=== PATIENT | female | born 1980 | race Asian ===

== ENCOUNTER 2017-01-14 16:42 | Emergency (ER) | payer OTHER ==
[~2017-01-14] VITALS: Ht 160 cm; Wt 59.0 kg
[2017-01-14 17:09] VITALS: BP 132/92
[2017-01-14] MEDS ORDERED: predniSONE 20 MG TABLET PO ONE (17:15)
[2017-01-14] MEDS ORDERED: diphenhydrAMINE HCL 25 MG CAPSULE PO ONE ×2 (17:15→17:17)
[2017-01-14] MEDS ORDERED: predniSONE 20 MG TABLET ONE (17:17)
[2017-01-14] MEDS ORDERED: PRED20TA PO (17:31)
[2017-01-14] MEDS ORDERED: TRIA15OI TP (17:31)
--- NOTE | 2017-01-14 17:31 | PHYS DOC ---
Past Medical History Past Medical History: No Pertinent History Past Surgical History: No Surgical History Alcohol Use: None Drug Use: None Adult General Chief Complaint Chief Complaint: ITCHING HPI HPI Patient is a 36 year old female female presents to the emergency department with a family member who is interpreting for the patient since the patient does not speak Georgian. She provided information that the patient was outside working in her garden on Sunday. She states that yesterday she developed a rash on bilateral hands and forearms. She states that she has had bilateral eye swelling. Patient states through the steam meter reader that should been taking Benadryl with minimal to no relief. She denies any drainage or discharge coming from the sites. She states that she is having a little shortness of air. She does not appear to be in any distress at this time. Denies any nausea or vomiting. Review of Systems Review of Systems Constitutional: Denies fever or chills [] Eyes: Denies change in visual acuity, redness, or eye pain. Bilateral swelling of eyes with redness noted. HENT: Denies nasal congestion or sore throat [] Respiratory: Denies cough or shortness of breath [] Cardiovascular: No additional information not addressed in HPI [] GI: Denies abdominal pain, nausea, vomiting, bloody stools or diarrhea [] : Denies dysuria or hematuria [] Musculoskeletal: Denies back pain or joint pain [] Integument: Complain a rash on bilateral hands and lower legs. No skin lesions Neurologic: Denies headache, focal weakness or sensory changes [] Endocrine: Denies polyuria or polydipsia [] Current Medications Current Medications Current Medications Medications (Trade) Dose Ordered Sig/Cheko Start Time Stop Time Status Last Admin Dose Admin Diphenhydramine HCl (Benadryl) 25 mg STK-MED ONCE 01/14/17 17:17 01/14/17 17:18 DC Prednisone (Prednisone) 20 mg STK-MED ONCE 01/14/17 17:17 01/14/17 17:18 DC Allergies Allergies Allergies Coded Allergies Type Severity Reaction Last Updated Verified No Known Drug Allergies 01/14/17 No Physical Exam Physical Exam Constitutional: Well developed, well nourished, no acute distress, non-toxic appearance. [] HENT: Normocephalic, atraumatic, bilateral external ears normal, oropharynx moist, no oral exudates, nose normal. Eyes: PERRLA, EOMI, conjunctiva normal, no discharge. Patient was noted to have swelling of bilateral eyes with redness noted around the areas no rash noted around the eyes. No drainage or discharge noted. Neck: Normal range of motion, no tenderness, supple, no stridor. [] Cardiovascular:Heart rate regular rhythm, no murmur [] Lungs & Thorax: Bilateral breath sounds clear to auscultation [] Skin: Warm, dry, no erythema, red raised pustular type rash noted on the hands. No drainage or discharge noted. Back: No tenderness Extremities: No tenderness, no cyanosis, no clubbing, ROM intact, no edema. [] Neurologic: Alert and oriented X 3, normal motor function, normal sensory function, no focal deficits noted. [] Psychologic: Affect normal, judgement normal, mood normal. [] Current Patient Data Vital Signs Vital Signs Date Time Temp Pulse Resp B/P (MAP) Pulse Ox O2 Delivery O2 Flow Rate FiO2 01/14/17 17:09 98.3 84 18 98 Room Air 98.3 EKG EKG [] Radiology/Procedures Radiology/Procedures [] Course & Med Decision Making Course & Med Decision Making Pertinent Labs and Imaging studies reviewed. (See chart for details) Patient was provided with Benadryl here in the emergency department as well as prednisone. Recommended patient to use 25 mg of Benadryl every 6 hours at home. Patient was instructed through the steam meter reader that this medication will cause drowsiness do not take any be alert and oriented. Patient was provided with prednisone here in the emergency department which she'll be provided for another 7 days without home. Recommended keeping the areas clean dry and cool. Recommended following up with her primary care physician within the next week. Patient states that she does not have a primary care physician. She was provided with a doctor's list. Signs and symptoms to return back to emergency department as been provided. Patient agrees with discharge instructions treatment regimens and follow-up recommendations. All questions and concerns have been answered through the steam meter reader at the bedside. [] Dragon Disclaimer Dragon Disclaimer This electronic medical record was generated, in whole or in part, using a voice recognition dictation system. Departure Departure Impression: Primary Impression: Allergic reaction Disposition: HOME, SELF-CARE Condition: STABLE Patient Instructions: Allergies, Generic Additional Instructions: Activity as tolerated. Benadryl 25 mg every 6 hours. This medication will cause drowsiness do not take any be alert and oriented. Prednisone as prescribed. You may also take Pepcid [id number] as prescribed by grill cook. Follow-up with a primary care physician in the next week. Return back to emergency prior signs symptoms of become worse. Scripts Prednisone (PREDNISONE) 20 Mg Tablet 40 MG PO DAILY for 7 Days, #14 TAB Prov: LORENA VIVAS APRN 01/14/17 Triamcinolone Acetonide (TRIAMCINOLONE ACETONIDE 0.1% OINT) 15 Gm Oint...g. 1 KATHLEEN TP BID for WOUND CARE, #1 TUBE MIX WITH EUCERIN DIRECTED BY PHYSICIAN Prov: LORENA VIVAS APRN 01/14/17 Problem Qualifiers Primary Impression: Allergic reaction Encounter type: initial encounter Qualified Codes: T78.40XA - Allergy, unspecified, initial encounter LORENA VIVAS APRN Jan 14, 2017 17:31
== END 2017-01-14 17:54 | disposition home or self-care (01) ==
LOC: ER 16:42
DX: T78.40XA Allergy, unspecified, initial encounter (principal); H57.8 Other specified disorders of eye and adnexa; R06.02 Shortness of breath
CPT/HCPCS: 99283; J7512; Q0163

== ENCOUNTER 2019-10-09 16:24 | Emergency (ER) | payer MEDICAID, OTHER ==
[~2019-10-09] VITALS: Ht 160 cm; Wt 63.6 kg
[~2019-10-09 16:24] MED LIST: PRED20TA PO; TRIA15OI TP
[2019-10-09 16:51] VITALS: BP 155/87
--- NOTE | 2019-10-09 16:54 | PHYS DOC ---
Past Medical History Past Medical History: No Pertinent History Past Surgical History: No Surgical History Smoking Status: Never Smoker Alcohol Use: None Drug Use: None General Adult EDM: Chief Complaint: BREAST PROBLEM HPI: HPI: Patient is a 39 year old Ukrainian speaking female who presents to the ED today c omplaining of a painful lump in her right breast that she noted a month ago. Patient reports the lump is painful. Denies any family or personal history of breast cancer. Denies any fever. Denies any chance she is . Denies any significant previous medical history. Review of Systems: Review of Systems: Constitutional: Denies fever or chills. [] GI: Denies abdominal pain, nausea, vomiting, bloody stools or diarrhea. [] : Denies dysuria. [] Musculoskeletal: Denies back pain or joint pain. [] Integument: Reports lump to the right wrist Neurologic: Denies headache, focal weakness or sensory changes. [] Psychiatric: Denies depression or anxiety. [] Heart Score: Risk Factors: Risk Factors: DM, Current or recent (<one month) smoker, HTN, HLP, family history of CAD, obesity. Risk Scores: Score 0 - 3: 2.5% MACE over next 6 weeks - Discharge Home Score 4 - 6: 20.3% MACE over next 6 weeks - Admit for Clinical Observation Score 7 - 10: 72.7% MACE over next 6 weeks - Early Invasive Strategies Allergies: Allergies: Allergies Coded Allergies Type Severity Reaction Last Updated Verified No Known Drug Allergies 01/14/17 No Physical Exam: PE: Constitutional: Well developed, well nourished, no acute distress, non-toxic appearance. [] Skin: Right breast at around 12 o'clock position with lump approximately 3 x 3 cm, no erythema to the lump. No nipple dimpling. No discharge from the nipple tenderness on palpation to the region. Back: No tenderness, no CVA tenderness. [] Extremities: No tenderness, no cyanosis, no clubbing, ROM intact, no edema. [] Neurologic: Alert and oriented X 3, normal motor function, normal sensory function, no focal deficits noted. [] Psychologic: Affect normal, judgement normal, mood normal. [] EKG: EKG: [] Radiology/Procedures: Radiology/Procedures: [] Course & Med Decision Making: Course & Med Decision Making Pertinent Labs and Imaging studies reviewed. (See chart for details) This is a 39-year-old female patient presenting to the ED today with a lump to the right breast for 1 month. No family or personal history of breast cancer.Patient was discharged to home and provided instructions to f/u with Dr. Mckay for outpatient mammogram. Financial Compliance Officer line was used for Reba White Disclaimer: Cindy Disclaimer: This electronic medical record was generated, in whole or in part, using a voice recognition dictation system. Departure Departure Impression: Primary Impression: Breast lump in female Disposition: HOME, SELF-CARE Condition: STABLE Referrals: NO PCP (PCP) LUZ CMKAY Jr, MD follow up in 1 week Patient Instructions: Fibrocystic Breast Changes, [id number] Additional Instructions: You have a lump to your right breast Please apply warm compresses to the region for comfort. Please take the medicine ordered as needed for pain Please contact the provided OBGYN and follow up in the next 1 week and he will send you for further testing like mammogram as an outpatient. Scripts Ibuprofen (IBUPROFEN) 800 Mg Tablet 800 MG PO PRN Q6HRS PRN for INFLAMMATION, #30 TAB Prov: TREY LYNN APRN 10/09/19 TREY LYNN APRN October 09, 2019 16:54
[2019-10-09] MEDS ORDERED: IBUP-1060 PO (16:55)
== END 2019-10-09 17:10 | disposition home or self-care (01) ==
LOC: ER 16:35
DX: N63.10 Unspecified lump in the right breast, unspecified quadrant (principal)
CPT/HCPCS: 99282